=== PATIENT | female | born 1955 | race Caucasian/White ===

== ENCOUNTER → 2016-11-27 | Outpatient (CLI) | payer MEDICAID ==
[2016-11-27 13:59] LABS: HEMOGLOBIN 11.9 g/dL (12.0-15.5); HGB HCT DIFFERENCE 0.7; MEAN CORPUSCULAR HEMOGLOBIN 31.4 pg (27.0-33.4); MEAN CORPUSCULAR VOLUME 92 fl (80-97); RED BLOOD COUNT 3.79 10^6/uL (3.72-5.28); RED CELL DISTRIBUTION WIDTH 13.7 % (11.5-14.0); WHITE BLOOD COUNT 4.6 10^3/uL (4.0-10.5)
[2016-11-27 14:25] LABS: ANION GAP 11 (5-19); BLOOD UREA NITROGEN 17 mg/dL (7-20); CALCIUM 9.2 mg/dL (8.4-10.2); CARBON DIOXIDE 23 mmol/L (22-30); CHLORIDE 106 mmol/L (98-107); CREATININE RESULT 0.96 mg/dL (0.52-1.25); GLUCOSE 97 mg/dL (75-110); POTASSIUM 4.7 mmol/L (3.6-5.0); SODIUM 140.3 mmol/L (137-145)
[2016-11-27 15:32] LABS: APPEARANCE,URINE CLOUDY; BILIRUBIN,URINE NEGATIVE (NEGATIVE); GLUCOSE, URINE NEGATIVE (NEGATIVE); KETONES,URINE NEGATIVE (NEGATIVE); LEUKOCYTE ESTERASE,URINE LARGE (NEGATIVE); NITRITE,URINE POSITIVE (NEGATIVE); PROTEIN,URINE 30 mg/dL (NEGATIVE); URINE SPECIFIC GRAVITY 1.009; UROBILINOGEN,URINE NEGATIVE mg/dL (<2.0)
== END ==
LOC: OD 13:13
PROVIDERS: ATTEND Internal Medicine Nephrology
DX: R31.9 Hematuria, unspecified (principal); R80.9 Proteinuria, unspecified; N00.8 Acute nephritic syndrome with other morphologic changes; I10 Essential (primary) hypertension
CPT/HCPCS: 36415; 80048; 81001; 85027

== ENCOUNTER → 2017-06-29 | Outpatient (CLI) | payer MEDICAID ==
--- NOTE | 2017-06-29 18:27 | WOMENS IMAGING REPORT ---
EXAM DESCRIPTION: BILAT DIAGNOSTIC MAMMO W/CAD; U/S BREAST UNILAT LIMITED COMPLETED DATE/TIME: 06/29/2017 9:24 am; 06/29/2017 10:03 am REASON FOR STUDY: MASTODYNIA; N64.4; LEFT BREAST LUMP N63.0 N64.4 MASTODYNIA COMPARISON: 2014 TECHNIQUE: Standard craniocaudal and mediolateral oblique views of each breast recorded using digita l acquisition. Additional left breast 90 mediolateral view. Additional left breast ultrasound LIMITATIONS: None. FINDINGS: RIGHT BREAST MASSES: No suspicious masses. CALCIFICATIONS: No new or suspicious calcifications. ARCHITECTURAL DISTORTION: None. DEVELOPING DENSITY: None. ASYMMETRY: None noted. OTHER: No other significant findings. LEFT BREAST MASSES: No suspicious masses. CALCIFICATIONS: No new or suspicious calcifications. ARCHITECTURAL DISTORTION: None. DEVELOPING DENSITY: None. ASYMMETRY: None noted. OTHER: No other significant finding. Read with the assistance of CAD: .[facility] - R2 Cenova Version 1.3 .[facility] Imaging - R2 Cenova Version 1.3 .[facility] Imaging - R2 Cenova Version 2.4 .[facility] - R2 Cenova Version 2.4 .[facility] - R2 Mopper Version 9.2 Left breast ultrasound: Ultrasound of the left breast was performed. In the 3 o'clock position, a 6 mm breast parenchymal cy [address] is present. This correlates with the area of pain. In the 10 to 11 o'clock position, a 6 mm cyst is present. This correlates with an area of pain. At the 7 to 8 o'clock position, a hypoechoic well-circumscribed sonographic nodule is present with go od acoustic through transmission likely a tiny fibroadenoma, 6 mm in size IMPRESSION: No mammographic evidence for malignancy right breast. No mammographic or sonographic evidence for malignancy left breast BREAST DENSITY: b. There are scattered areas of fibroglandular density. BIRAD: 2 Benign findings. RECOMMENDATION: RECOMMENDED FOLLOW UP: Please continue yearly bilateral screening mammography. Cons ider bilateral tomosynthesis in June 2018 SPECIFIC INTERVENTION/IMAGING/CONSULTATION RECOMMENDED:No additional intervention/ imaging/consultati on needed at this time. COMMUNICATION:The negative/benign results were communicated to the patient. COMMENT: The patient has been notified of the results by letter per MQSA requirements. Additional no tification policies are in place for contacting patient with suspicious or incomplete findings. Quality ID #[id number]: The [employer] recommends an annual screening mammogram for women aged 40 years or over. This facility utilizes a reminder system to ensure that all patients receive reminder letters, and/or direct phone calls for appointments. This includes reminders for routine scr eening mammograms, diagnostic mammograms, or other Breast Imaging Interventions when appropriate. Th is patient will be placed in the appropriate reminder system. The [employer] (ACR) has developed recommendations for screening MRI of the breast s in certain patient populations, to be used in conjunction with mammography. Breast MRI surveillanc e may be appropriate for women with more than 20% lifetime risk of developing breast cancer as deter mined by genetic testing, significant family history of the disease, or history of mantle radiation f or Hodgkins Disease. ACR Practice Guidelines 2008. TECHNICAL DOCUMENTATION: FINDING NUMBER: (1) ASSESSMENT: (1) JOB ID: [id number] [employer]- All Rights Reserved
--- NOTE | 2017-06-29 18:27 | WOMENS IMAGING REPORT ---
EXAM DESCRIPTION: BILAT DIAGNOSTIC MAMMO W/CAD; U/S BREAST UNILAT LIMITED COMPLETED DATE/TIME: 06/29/2017 9:24 am; 06/29/2017 10:03 am REASON FOR STUDY: MASTODYNIA; N64.4; LEFT BREAST LUMP N63.0 N64.4 MASTODYNIA COMPARISON: 2014 TECHNIQUE: Standard craniocaudal and mediolateral oblique views of each breast recorded using digita l acquisition. Additional left breast 90 mediolateral view. Additional left breast ultrasound LIMITATIONS: None. FINDINGS: RIGHT BREAST MASSES: No suspicious masses. CALCIFICATIONS: No new or suspicious calcifications. ARCHITECTURAL DISTORTION: None. DEVELOPING DENSITY: None. ASYMMETRY: None noted. OTHER: No other significant findings. LEFT BREAST MASSES: No suspicious masses. CALCIFICATIONS: No new or suspicious calcifications. ARCHITECTURAL DISTORTION: None. DEVELOPING DENSITY: None. ASYMMETRY: None noted. OTHER: No other significant finding. Read with the assistance of CAD: .[facility] - R2 Cenova Version 1.3 .[facility] Imaging - R2 Cenova Version 1.3 .[facility] Imaging - R2 Cenova Version 2.4 .[facility] - R2 Cenova Version 2.4 .[facility] - R2 Publicist Version 9.2 Left breast ultrasound: Ultrasound of the left breast was performed. In the 3 o'clock position, a 6 mm breast parenchymal cy st is present. This correlates with the area of pain. In the 10 to 11 o'clock position, a 6 mm cyst is present. This correlates with an area of pain. At the 7 to 8 o'clock position, a hypoechoic well-circumscribed sonographic nodule is present with go od acoustic through transmission likely a tiny fibroadenoma, 6 mm in size IMPRESSION: No mammographic evidence for malignancy right breast. No mammographic or sonographic evidence for malignancy left breast BREAST DENSITY: b. There are scattered areas of fibroglandular density. BIRAD: 2 Benign findings. RECOMMENDATION: RECOMMENDED FOLLOW UP: Please continue yearly bilateral screening mammography. Cons ider bilateral tomosynthesis in June 2018 SPECIFIC INTERVENTION/IMAGING/CONSULTATION RECOMMENDED:No additional intervention/ imaging/consultati on needed at this time. COMMUNICATION:The negative/benign results were communicated to the patient. COMMENT: The patient has been notified of the results by letter per MQSA requirements. Additional no tification policies are in place for contacting patient with suspicious or incomplete findings. Quality ID #[id number]: The [employer] recommends an annual screening mammogram for women aged 40 years or over. This facility utilizes a reminder system to ensure that all patients receive reminder letters, and/or direct phone calls for appointments. This includes reminders for routine scr eening mammograms, diagnostic mammograms, or other Breast Imaging Interventions when appropriate. Th is patient will be placed in the appropriate reminder system. The [employer] (ACR) has developed recommendations for screening MRI of the breast s in certain patient populations, to be used in conjunction with mammography. Breast MRI surveillanc e may be appropriate for women with more than 20% lifetime risk of developing breast cancer as deter mined by genetic testing, significant family history of the disease, or history of mantle radiation f or Hodgkins Disease. ACR Practice Guidelines 2008. TECHNICAL DOCUMENTATION: FINDING NUMBER: (1) ASSESSMENT: (1) JOB ID: [id number] [employer]- All Rights Reserved
== END ==
LOC: WI 09:27
PROVIDERS: ATTEND Physician Assistant
DX: N64.4 Mastodynia (principal)
CPT/HCPCS: 76642; G0204; 77066

== ENCOUNTER → 2017-10-19 | Outpatient (CLI) | payer MEDICAID ==
[2017-10-19 09:14] LABS: ABSOLUTE EOSINOPHILS # (AUTO) 0.2 10^3/uL (0.0-0.6); ABSOLUTE LYMPHOCYTES (AUTO) 1.5 10^3/uL (0.5-4.7); ABSOLUTE MONOCYTES (AUTO) 0.3 10^3/uL (0.1-1.4); ABSOLUTE NEUT (AUTO) 3.1 10^3/uL (1.7-8.2); BASOPHILS % (AUTO) 0.3 % (0-2); EOSINOPHILS % (AUTO) 3.4 % (0-6); HEMATOCRIT 37.6 % (36.0-47.0); HEMOGLOBIN 13.2 g/dL (12.0-15.5); LYMPHOCYTES % (AUTO) 29.7 % (13-45); MEAN CORPUSCULAR HEMOGLOBIN 32.5 pg (27.0-33.4); MEAN CORPUSCULAR HGB CONC 35.2 g/dL (32.0-36.0); MEAN CORPUSCULAR VOLUME 92 fl (80-97); MONOCYTES % (AUTO) 5.9 % (3-13); PLATELET COUNT 150 10^3/uL (150-450); RED BLOOD COUNT 4.08 10^6/uL (3.72-5.28); RED CELL DISTRIBUTION WIDTH 13.3 % (11.5-14.0); SEGMENTED NEUTROPHILS % (AUTO) 60.7 % (42-78); TOTAL CELLS COUNTED % (AUTO) 100 %
[2017-10-19 09:19] LABS: APPEARANCE,URINE SLIGHTLY-CLOUDY; BILIRUBIN,URINE NEGATIVE (NEGATIVE); COLOR,URINE YELLOW; GLUCOSE, URINE NEGATIVE (NEGATIVE); KETONES,URINE NEGATIVE (NEGATIVE); LEUKOCYTE ESTERASE,URINE MODERATE (NEGATIVE); NITRITE,URINE POSITIVE (NEGATIVE); PROTEIN,URINE NEGATIVE (NEGATIVE); URINE SPECIFIC GRAVITY 1.008; UROBILINOGEN,URINE NEGATIVE mg/dL (<2.0)
[2017-10-19 09:37] LABS: ANION GAP 14 (5-19); BLOOD UREA NITROGEN 21 mg/dL (7-20); CALCIUM 10.1 mg/dL (8.4-10.2); CARBON DIOXIDE 24 mmol/L (22-30); CHLORIDE 103 mmol/L (98-107); GLUCOSE 155 mg/dL (75-110); POTASSIUM 4.1 mmol/L (3.6-5.0); SODIUM 140.8 mmol/L (137-145)
== END ==
LOC: OD 08:28
PROVIDERS: ATTEND Internal Medicine Nephrology
DX: R80.9 Proteinuria, unspecified (principal); I10 Essential (primary) hypertension; M32.9 Systemic lupus erythematosus, unspecified
CPT/HCPCS: 36415; 80048; 81001; 85025

== ENCOUNTER → 2018-01-24 | Outpatient (CLI) | payer MEDICAID ==
[2018-01-24 11:23] LABS: HEMATOCRIT 38.3 % (36.0-47.0); HEMOGLOBIN 13.2 g/dL (12.0-15.5); MEAN CORPUSCULAR HEMOGLOBIN 32.4 pg (27.0-33.4); MEAN CORPUSCULAR HGB CONC 34.5 g/dL (32.0-36.0); MEAN CORPUSCULAR VOLUME 94 fl (80-97); PLATELET COUNT 151 10^3/uL (150-450); RED BLOOD COUNT 4.07 10^6/uL (3.72-5.28); WHITE BLOOD COUNT 3.2 10^3/uL (4.0-10.5)
[2018-01-24 11:40] LABS: ALANINE AMINOTRANSFERASE 26 U/L (9-52); ALBUMIN 4.2 g/dL (3.5-5.0); ALKALINE PHOSPHATASE 44 U/L (38-126); ANION GAP 10 (5-19); ASPARTATE AMINO TRANSFERASE 23 U/L (14-36); BILIRUBIN,DIRECT 0.3 mg/dL (0.0-0.4); BILIRUBIN,TOTAL 0.5 mg/dL (0.2-1.3); BLOOD UREA NITROGEN 15 mg/dL (7-20); CALCIUM 9.6 mg/dL (8.4-10.2); CARBON DIOXIDE 28 mmol/L (22-30); CHLORIDE 105 mmol/L (98-107); CREATINE KINASE 58 U/L (30-135); GLUCOSE 120 mg/dL (75-110); POTASSIUM 4.4 mmol/L (3.6-5.0); SODIUM 142.5 mmol/L (137-145)
[2018-01-24 12:31] LABS: APPEARANCE,URINE CLEAR; BILIRUBIN,URINE NEGATIVE (NEGATIVE); COLOR,URINE YELLOW; GLUCOSE, URINE NEGATIVE (NEGATIVE); KETONES,URINE NEGATIVE (NEGATIVE); LEUKOCYTE ESTERASE,URINE TRACE (NEGATIVE); NITRITE,URINE NEGATIVE (NEGATIVE); PROTEIN,URINE NEGATIVE (NEGATIVE); URINE SPECIFIC GRAVITY 1.011; UROBILINOGEN,URINE NEGATIVE mg/dL (<2.0)
== END ==
LOC: OD 10:30
PROVIDERS: ATTEND Internal Medicine Nephrology
DX: R80.9 Proteinuria, unspecified (principal); R31.9 Hematuria, unspecified
CPT/HCPCS: 36415; 80053; 81001; 82550; 85027

== ENCOUNTER → 2018-03-15 | Outpatient (CLI) | payer MEDICAID ==
--- NOTE | 2018-03-15 11:47 | RADIOLOGY REPORT (SQ) ---
EXAM DESCRIPTION: U/S ABDOMEN COMPLETE W/DOPPLER COMPLETED DATE/TIME: 03/15/2018 11:20 am REASON FOR STUDY: ABDOMINAL DISTENSION (GASEOUS) R14.0 ABDOMINAL DISTENSION (GASEOUS) COMPARISON: CT abdomen pelvis 02/14/2016, 10/30/2015 TECHNIQUE: Dynamic and static grayscale images acquired of the abdomen and recorded on PACS. Additio nal selected color Doppler and spectral images recorded. LIMITATIONS: Midline bowel gas FINDINGS: PANCREAS: Midline pancreas unremarkable LIVER: No masses. Echotexture normal. LIVER VASCULATURE: Normal directional flow of the main portal vein and hepatic veins. GALLBLADDER: No stones. Normal wall thickness. No pericholecystic fluid. ULTRASOUND-DETECTED VALDEZ'S SIGN: Negative. INTRAHEPATIC DUCTS AND COMMON DUCT: CBD and intrahepatic ducts normal caliber. No filling defects. INFERIOR VENA CAVA: Normal flow. AORTA: No aneurysm. RIGHT KIDNEY: Normal size. Normal echogenicity. No solid or suspicious masses. No hydronephros is. No calcifications. LEFT KIDNEY: Normal size. Normal echogenicity. No solid or suspicious masses. No hydronephrosi s. No calcifications. SPLEEN: Normal size. No solid masses. PERITONEAL AND PLEURAL SPACES: No ascites or effusions. OTHER: No other significant finding. IMPRESSION: NORMAL ABDOMINAL ULTRASOUND. TECHNICAL DOCUMENTATION: JOB ID: [id number] [employer]- All Rights Reserved Reading location - IP/workstation name: [email or web address]
== END ==
LOC: RAD 10:29
PROVIDERS: ATTEND Physician Assistant Medical
DX: R14.0 Abdominal distension (gaseous) (principal); R10.11 Right upper quadrant pain; D69.6 Thrombocytopenia, unspecified
CPT/HCPCS: 76700; 93976

== ENCOUNTER → 2018-07-27 | Outpatient (CLI) | payer MEDICAID ==
[2018-07-27 14:10] LABS: HEMATOCRIT 39.8 % (36.0-47.0); HEMOGLOBIN 14.2 g/dL (12.0-15.5); MEAN CORPUSCULAR HEMOGLOBIN 32.4 pg (27.0-33.4); MEAN CORPUSCULAR HGB CONC 35.5 g/dL (32.0-36.0); MEAN CORPUSCULAR VOLUME 91 fl (80-97); PLATELET COUNT 201 10^3/uL (150-450); RED BLOOD COUNT 4.37 10^6/uL (3.72-5.28); RED CELL DISTRIBUTION WIDTH 13.1 % (11.5-14.0); WHITE BLOOD COUNT 6.1 10^3/uL (4.0-10.5)
[2018-07-27 14:18] LABS: APPEARANCE,URINE CLOUDY; BILIRUBIN,URINE NEGATIVE (NEGATIVE); COLOR,URINE YELLOW; GLUCOSE, URINE NEGATIVE (NEGATIVE); KETONES,URINE NEGATIVE (NEGATIVE); LEUKOCYTE ESTERASE,URINE LARGE (NEGATIVE); NITRITE,URINE NEGATIVE (NEGATIVE); PROTEIN,URINE 30 mg/dL (NEGATIVE); URINE SPECIFIC GRAVITY 1.005; UROBILINOGEN,URINE NEGATIVE mg/dL (<2.0)
[2018-07-27 14:34] LABS: ANION GAP 10 (5-19); BLOOD UREA NITROGEN 11 mg/dL (7-20); CALCIUM 9.8 mg/dL (8.4-10.2); CARBON DIOXIDE 30 mmol/L (22-30); CHLORIDE 100 mmol/L (98-107); GLUCOSE 107 mg/dL (75-110); POTASSIUM 5.7 mmol/L (3.6-5.0); SODIUM 140.4 mmol/L (137-145)
== END ==
LOC: OD 13:20
PROVIDERS: ATTEND Internal Medicine Nephrology
DX: R80.9 Proteinuria, unspecified (principal); M32.10 Systemic lupus erythematosus, organ or system involvement unspecified; R31.9 Hematuria, unspecified
CPT/HCPCS: 36415; 80048; 81001; 85027

== ENCOUNTER 2018-07-29 14:05 | Emergency (ER) | payer MEDICAID ==
[2018-07-29] MEDS ORDERED: ASPIRIN 81 MG TABLET, CHEWABLE PO ONE (15:40)
--- NOTE | 2018-07-29 15:42 | ER Document Report ---
ED Medical Screen (RME) - General Chief Complaint: Shortness Of Breath Stated Complaint: SHORTNESS OF BREATH,BACK PAIN Time Seen by Provider: 07/29/18 15:32 Mode of Arrival: Ambulatory Information source: Patient Notes: Patient is a 63-year-old female who presents with multiple complaints today. Patient reports she had labs drawn yesterday that were ordered by her ring striker in [place]. She states that they called her told her that her potassium was 5.7, they instructed her to take Kayexalate and return for new lab draw today. Patient states she had her labs redrawn today and potassium was down to 4.5. Patient however reports she has been having increasing shortness of breath today, chest pain that radiates through to her back and palpitations. Patient also reports generalized abdominal pain. Patient states she has a history of recurrent UTIs she is not sure if that is what is causing her abdominal pain however she states the chest pain is something new for her. Exam: Patient alert, oriented and in no acute distress. Heart sounds S1-S2 present. Lung sounds clear to auscultation bilaterally. I have greeted and performed a rapid initial assessment of this patient. A comprehensive ED assessment and evaluation of the patient, analysis of test results and completion of the medical decision making process will be conducted by additional ED providers. Dictation of this chart was performed using voice recognition software; therefore, there may be some unintended grammatical errors. TRAVEL OUTSIDE OF THE [place] IN LAST 30 DAYS: No - Related Data Allergies/Adverse Reactions: aminophylline Allergy (Verified 03/13/16 18:26) Past Medical History - Past Medical History Cardiac Medical History: Denies: Hx Coronary Artery Disease, Hx Heart Attack, Hx Hypertension Pulmonary Medical History: Denies: Hx Asthma, Hx Bronchitis, Hx COPD, Hx Pneumonia Neurological Medical History: Denies: Hx Cerebrovascular Accident, Hx Seizures Renal/ Medical History: Reports: Hx Renal Insufficiency GI Medical History: Reports: Hx Gastroesophageal Reflux Disease, Hx Hiatal Hernia Musculoskeltal Medical History: Reports Hx Arthritis, Reports Hx Fibromyalgia Psychiatric Medical History: Reports: Hx Anxiety, Hx Depression Past Surgical History: Reports: Hx Cardiac Surgery - Aortic valve repair 2208, Hx Orthopedic Surgery - Left elbow, Hx Vascular Surgery - ANEURYSMS IN NECK REPAIRED. Denies: Hx Hysterectomy - Immunizations Hx Diphtheria, Pertussis, Tetanus Vaccination: Yes Physical Exam - Vital signs Vitals: Temp Pulse Resp BP Pulse Ox 98.0 F 94 16 132/78 H 96 07/29/18 14:45 07/29/18 14:45 07/29/18 14:45 07/29/18 14:45 07/29/18 14:45 Course - Vital Signs Vital signs: Temp Pulse Resp BP Pulse Ox 98.0 F 94 16 132/78 H 96 07/29/18 14:45 07/29/18 14:45 07/29/18 14:45 07/29/18 14:45 07/29/18 14:45 Doctor's Discharge - Discharge Referrals: Rachelle FARR MD [Primary Care Provider] - Follow up as needed
--- NOTE | 2018-07-29 16:03 | RADIOLOGY REPORT (SQ) ---
EXAM DESCRIPTION: CHEST SINGLE VIEW COMPLETED DATE/TIME: 07/29/2018 3:51 pm REASON FOR STUDY: chest pain COMPARISON: 03/13/2016 EXAM PARAMETERS: NUMBER OF VIEWS: One view. TECHNIQUE: Single frontal radiographic view of the chest acquired. RADIATION DOSE: NA LIMITATIONS: None. FINDINGS: LUNGS AND PLEURA: No opacities, masses or pneumothorax. No pleural effusion. MEDIASTINUM AND HILAR STRUCTURES: No masses. Contour normal. HEART AND VASCULAR STRUCTURES: Heart normal in size. Normal vasculature. BONES: No acute findings. HARDWARE: Sternotomy wires. Heart valve. OTHER: No other significant finding. IMPRESSION: NO ACUTE RADIOGRAPHIC FINDING IN THE CHEST. TECHNICAL DOCUMENTATION: JOB ID: [id number] [employer]- All Rights Reserved Reading location - IP/workstation name: [email or web address]
[2018-07-29 16:50] LABS: ABSOLUTE EOSINOPHILS # (AUTO) 0.1 10^3/uL (0.0-0.6); ABSOLUTE LYMPHOCYTES (AUTO) 1.4 10^3/uL (0.5-4.7); ABSOLUTE MONOCYTES (AUTO) 0.4 10^3/uL (0.1-1.4); ABSOLUTE NEUT (AUTO) 4.1 10^3/uL (1.7-8.2); BASOPHILS % (AUTO) 0.3 % (0-2); EOSINOPHILS % (AUTO) 1.1 % (0-6); HEMATOCRIT 36.7 % (36.0-47.0); HEMOGLOBIN 12.9 g/dL (12.0-15.5); LYMPHOCYTES % (AUTO) 23.6 % (13-45); MEAN CORPUSCULAR HEMOGLOBIN 32.4 pg (27.0-33.4); MEAN CORPUSCULAR HGB CONC 35.1 g/dL (32.0-36.0); MEAN CORPUSCULAR VOLUME 92 fl (80-97); MONOCYTES % (AUTO) 6.3 % (3-13); PLATELET COUNT 197 10^3/uL (150-450); RED BLOOD COUNT 3.98 10^6/uL (3.72-5.28); RED CELL DISTRIBUTION WIDTH 13.1 % (11.5-14.0); SEGMENTED NEUTROPHILS % (AUTO) 68.7 % (42-78); TOTAL CELLS COUNTED % (AUTO) 100 %
[2018-07-29 16:54] LABS: APPEARANCE,URINE TURBID; BILIRUBIN,URINE NEGATIVE (NEGATIVE); COLOR,URINE YELLOW; GLUCOSE, URINE NEGATIVE (NEGATIVE); KETONES,URINE NEGATIVE (NEGATIVE); LEUKOCYTE ESTERASE,URINE LARGE (NEGATIVE); NITRITE,URINE NEGATIVE (NEGATIVE); PROTEIN,URINE 100 mg/dL (NEGATIVE); UROBILINOGEN,URINE NEGATIVE mg/dL (<2.0)
[2018-07-29 17:09] LABS: ALANINE AMINOTRANSFERASE 29 U/L (9-52); ALBUMIN 4.3 g/dL (3.5-5.0); ALKALINE PHOSPHATASE 69 U/L (38-126); ANION GAP 13 (5-19); ASPARTATE AMINO TRANSFERASE 32 U/L (14-36); BILIRUBIN,DIRECT 0.2 mg/dL (0.0-0.4); BILIRUBIN,TOTAL 0.5 mg/dL (0.2-1.3); BLOOD UREA NITROGEN 16 mg/dL (7-20); CALCIUM 9.5 mg/dL (8.4-10.2); CARBON DIOXIDE 26 mmol/L (22-30); CHLORIDE 102 mmol/L (98-107); CREATINE KINASE 69 U/L (30-135); GLUCOSE 92 mg/dL (75-110); POTASSIUM 4.2 mmol/L (3.6-5.0); SODIUM 140.8 mmol/L (137-145); TOTAL PROTEIN 7.3 g/dL (6.3-8.2)
[2018-07-29 17:19] LABS: CREATINE KINASE MB 0.49 ng/mL (<4.55)
[2018-07-29 17:22] LABS: TROPONIN I < 0.012 ng/mL
[2018-07-29] MEDS ORDERED: CEFTRIAXONE 1 GM/D5W RTU 1 GM/50 ML RTUPB IV ONE (17:35)
--- NOTE | 2018-07-29 18:01 | RADIOLOGY REPORT (SQ) ---
EXAM DESCRIPTION: CT LTD RENAL STONE PROTOCOL ON COMPLETED DATE/TIME: 07/29/2018 5:45 pm REASON FOR STUDY: right flank COMPARISON: None. TECHNIQUE: CT scan of the abdomen and pelvis performed without intravenous or oral contrast. Images reviewed with lung, soft tissue, and bone windows. Reconstructed coronal and sagittal MPR images revi ewed. All images stored on PACS. All CT scanners at this facility use dose modulation, iterative reconstruction, and/or weight based d osing when appropriate to reduce radiation dose to as low as reasonably achievable (ALARA). [facility]: Dose Right [facility]: CareDose [facility]: Dose Right [facility]: Teradose 4D [facility]: Smart [employer] RADIATION DOSE: CT Rad equipment meets quality standard of care and radiation dose reduction techniq ues were employed. CTDIvol: 14.1 mGy. DLP: 796 mGy-cm.mGy. LIMITATIONS: None. FINDINGS: LOWER CHEST: No significant findings. No nodules or infiltrates. NON-CONTRASTED LIVER, SPLEEN, ADRENALS: Evaluation limited by lack of IV contrast. No identified sign ificant masses. PANCREAS: No masses. No peripancreatic inflammatory changes. GALLBLADDER: No identified stones by CT criteria. No inflammatory changes to suggest cholecystitis. RIGHT KIDNEY AND URETER: No suspicious masses. Assessment limited by lack of IV contrast. No signif icant calcifications. No hydronephrosis or hydroureter. LEFT KIDNEY AND URETER: No suspicious masses. Assessment limited by lack of IV contrast. No signifi cant calcifications. No hydronephrosis or hydroureter. AORTA AND RETROPERITONEUM: No aneurysm. No retroperitoneal masses or adenopathy. BOWEL AND PERITONEAL CAVITY: Occasional sigmoid diverticula. Question mild inflammatory changes in t he fat adjacent to the sigmoid on image 67 series 3. APPENDIX: Not identified. PELVIS, BLADDER, AND ABDOMINAL WALL:There is slight thickening of the wall of the urinary bladder. T here is extensive stranding in the fat around the bladder. BONES: No significant findings. OTHER: No other significant finding. IMPRESSION: 1. There are inflammatory changes associated with the urinary bladder. There is mild t hickening of bladder wall. Concerning for cystitis. 2. Mild diverticulosis coli. Question minimal inflammation adjacent to the sigmoid. COMMENT: Quality ID # [id number]: Final reports with documentation of one or more dose reduction techniques (e.g., Automated exposure control, adjustment of the mA and/or kV according to patient size, use of iterative reconstruction technique) TECHNICAL DOCUMENTATION: JOB ID: [id number] [employer] [facility]- All Rights Reserved Reading location - IP/workstation name: [email or web address]
[2018-07-29] MEDS ORDERED: AMOXICILLIN TR/POT CLAVULANATE 500-125 MG TAB PO ONE (18:06)
--- NOTE | 2018-07-29 18:19 | ER Document Report ---
ED General - General Chief Complaint: Shortness Of Breath Stated Complaint: SHORTNESS OF BREATH,BACK PAIN Time Seen by Provider: 07/29/18 15:32 Mode of Arrival: Ambulatory TRAVEL OUTSIDE OF THE [place] IN LAST 30 DAYS: No - HPI Patient complains to provider of: Multiple complaints Notes: Patient coming in with multiple complaints denies complaints shortness of breath chest tightness lower abdominal pain urinary tract symptoms. Patient states he has a history of lupus and fibromyalgia. Patient states abdominal pain left lower quadrant ongoing for many years however exacerbated over the last week. Patient also states generalized weakness. Patient denies any fever chills nausea vomiting diarrhea. Patient states that her PCP is Dr. Malcolm states multiple evaluations have been performed and unable to give a clear answer why she has chronic left lower quadrant abdominal pain. Patient states negative colonoscopy never CAT scans patient also states negative cystoscopies however does have history of recurrent UTIs. Patient states she has been told by her PCP that Keflex would not work for her anymore. Otherwise patient is resting comfortably no signs of toxemia or sepsis upon my evaluation. - Related Data Allergies/Adverse Reactions: aminophylline Allergy (Verified 03/13/16 18:26) Past Medical History - General Information source: Patient - Social History Smoking Status: Current Some Day Smoker Family History: CAD Patient has suicidal ideation: No Patient has homicidal ideation: No - Past Medical History Cardiac Medical History: Denies: Hx Coronary Artery Disease, Hx Heart Attack, Hx Hypertension Pulmonary Medical History: Denies: Hx Asthma, Hx Bronchitis, Hx COPD, Hx Pneumonia Neurological Medical History: Denies: Hx Cerebrovascular Accident, Hx Seizures Renal/ Medical History: Reports: Hx Renal Insufficiency. Denies: Hx Peritoneal Dialysis GI Medical History: Reports: Hx Gastroesophageal Reflux Disease, Hx Hiatal Hernia Musculoskeletal Medical History: Reports Hx Arthritis, Reports Hx Fibromyalgia Psychiatric Medical History: Reports: Hx Anxiety, Hx Depression Past Surgical History: Reports: Hx Cardiac Surgery - Aortic valve repair 2208, Hx Orthopedic Surgery - Left elbow, Hx Vascular Surgery - ANEURYSMS IN NECK REPAIRED. Denies: Hx Hysterectomy - Immunizations Hx Diphtheria, Pertussis, Tetanus Vaccination: Yes Review of Systems - Review of Systems Constitutional: No symptoms reported EENT: No symptoms reported Cardiovascular: No symptoms reported Respiratory: Short of breath Gastrointestinal: Abdominal pain Genitourinary: Other - Patient states I have a UTI Female Genitourinary: No symptoms reported Musculoskeletal: No symptoms reported Skin: No symptoms reported Hematologic/Lymphatic: No symptoms reported Neurological/Psychological: No symptoms reported -: Yes All other systems reviewed and negative Physical Exam - Vital signs Vitals: Temp Pulse Resp BP Pulse Ox 98.0 F 94 16 132/78 H 96 07/29/18 14:45 07/29/18 14:45 07/29/18 14:45 07/29/18 14:45 07/29/18 14:45 Interpretation: Normal - General General appearance: Appears well, Alert - HEENT Head: Normocephalic, Atraumatic Eyes: Normal Pupils: PERRL - Respiratory Respiratory status: No respiratory distress Chest status: Nontender Breath sounds: Normal Chest palpation: Normal - Cardiovascular Rhythm: Regular Heart sounds: Normal auscultation Murmur: No Systolic murmur grade 1-6: 3 - Abdominal Inspection: Normal, Obese Distension: No distension Bowel sounds: Normal Tenderness: Nontender Organomegaly: No organomegaly - Back Back: Normal, Nontender - Extremities General upper extremity: Normal inspection, Nontender, Normal color, Normal ROM , Normal temperature General lower extremity: Normal inspection, Nontender, Normal color, Normal ROM , Normal temperature, Normal weight bearing. No: Nori's sign - Neurological Neuro grossly intact: Yes Cognition: Normal Orientation: AAOx4 [place] Coma Scale Eye Opening: Spontaneous Agustín Coma Scale Verbal: Oriented Agustín Coma Scale Motor: Obeys Commands [place] Coma Scale Total: 15 Speech: Normal Motor strength normal: LUE, RUE, LLE, RLE Sensory: Normal - Psychological Associated symptoms: Normal affect, Normal mood - Skin Skin Temperature: Warm Skin Moisture: Dry Skin Color: Normal Course - Re-evaluation Re-evalutation: 07/29/18 19:21 I did review the patient's previous visit showing multiple CAT scans initially explained to the patient I would hesitate to perform any more CTs on the patient however upon reviewing the patient's laboratory studies patient does have blood in her urine and signs of a urinary tract infection therefore a CT scan was performed looking for renal stone. This was negative. Explained to the patient that there is no renal stones however slight inflammation around the bladder consistent with cystitis which is seen on multiple CAT scans in the past also some slight stranding around the sigmoid colon more likely coming from the bladder recommended Rocephin at this time followed by a course of Augmentin to cover the inflammatory changes around the sigmoid colon and urinary tract infection. Otherwise troponin EKG chest x-ray laboratory studies not show any critical pathology patient will be discharged home follow-up PCP. The patient presents with abdominal pain without signs of peritonitis or other life-threatening or serious etiology. The patient appears stable for discharge and has been instructed to return immediately if the symptoms worsen in any way , or in 8-12hr if not improved for re-evaluation. The patient has been instructed to return if the symptoms worsen or change in any way. The patient has atypical chest pain as the patient's chest pain is not suggestive of pulmonary embolus, cardiac ischemia, aortic dissection, or other serious etiology. Given the extremely low risk of these diagnoses further testing and evaluation for these possibilities does not appear to be indicated at this time. The patient has been instructed to return if the symptoms worsen or change in any way. - Vital Signs Vital signs: Temp Pulse Resp BP Pulse Ox 98.0 F 91 18 154/85 H 100 07/29/18 19:19 07/29/18 19:19 07/29/18 19:19 07/29/18 19:19 07/29/18 19:19 - Laboratory Result Diagrams: 07/29/18 16:22 07/29/18 16:22 Laboratory results interpreted by me: 07/29/18 07/29/18 16:22 16:22 Est GFR ( Amer) 53 L Est GFR (Non-Af Amer) 44 L Urine Protein 100 H Urine Blood MODERATE H Ur Leukocyte Esterase LARGE H Discharge - Discharge Clinical Impression: Mild inflammation around the sigmoid UTI (urinary tract infection) Qualifiers: Urinary tract infection type: acute cystitis Hematuria presence: with hematuria Qualified Code(s): N30.01 - Acute cystitis with hematuria Instructions: Abdominal Pain ([facility]), Augmentin ([facility]), Urinary Tract Infection ( [facility]) Additional Instructions: Your laboratory studies today did not show any signs of significant pathology. Troponin is negative chest x-ray is negative EKG looks normal. I would highly recommend she follow-up with her primary care physician for these complaints. Your urinalysis does show signs of infection. We will treat your urinary tract infection with a dose of Rocephin here in the ER along with dose of Augmentin. Your CAT scan did not show any signs of kidney stones today however there is some slight inflammation around her bladder and also just above your sigmoid colon. More likely the inflammation is due to her chronic infections. The Augmentin should take care of any infectious cause from your bladder or from the sigmoid colon I would recommend eating plenty of yogurt as that any antibiotic can cause diarrhea Take Bentyl for pain recommend Tylenol Motrin for pain control as well follow- up with your primary care physician in the next 3-5 days. We recommend having her INR checked in the next 48-72 hours Prescriptions: Amox Tr/Potassium Clavulanate [Augmentin 875-125 Tablet] 1 tab PO BID 10 Days tablet Dicyclomine HCl [Bentyl 20 mg Tablet] 20 mg PO QID #30 tablet Referrals: Rachelle FARR MD [ACTIVE STAFF] - Follow up as needed
[2018-07-29 19:20] VITALS: BP 154/85
--- NOTE | 2018-07-30 00:16 | EKG REPORT ---
SEVERITY:- NORMAL ECG - SINUS RHYTHM NONSPECIFIC ST-T CHANGES : Confirmed by: Lindsey Kennedy 30-Jul-2018 00:15:23
== END 2018-07-29 19:20 | disposition home or self-care (01) ==
LOC: ER 14:05
DX: N30.01 Acute cystitis with hematuria (principal); R10.32 Left lower quadrant pain; R53.1 Weakness; R06.02 Shortness of breath; F17.200 Nicotine dependence, unspecified, uncomplicated; Z88.8 Allergy status to other drugs, medicaments and biological substances
CPT/HCPCS: 93005; 99285; 96365; 36415; 82553; 82550; 85025; 80053; 81001; 84484; 71045; 76380; 93010; J3490; J0696

== ENCOUNTER → 2018-07-29 | Outpatient (CLI) | payer MEDICAID | LOC: OD 08:36 | PROVIDERS: ATTEND Internal Medicine Nephrology | DX: N39.0 Urinary tract infection, site not specified (principal); E87.5 Hyperkalemia | CPT/HCPCS: 36415; 84132; 87086; 87088; 87186 ==

== ENCOUNTER → 2020-02-28 | Outpatient (CLI) | payer MEDICAID ==
[2020-02-28 15:25] LABS: ABSOLUTE EOSINOPHILS # (AUTO) 0.1 10^3/uL (0.0-0.6); ABSOLUTE LYMPHOCYTES (AUTO) 1.3 10^3/uL (0.5-4.7); ABSOLUTE MONOCYTES (AUTO) 0.2 10^3/uL (0.1-1.4); ABSOLUTE NEUT (AUTO) 2.6 10^3/uL (1.7-8.2); BASOPHILS % (AUTO) 0.3 % (0-2); EOSINOPHILS % (AUTO) 2.2 % (0-6); HEMATOCRIT 36.7 % (36.0-47.0); HEMOGLOBIN 13.1 g/dL (12.0-15.5); LYMPHOCYTES % (AUTO) 31.5 % (13-45); MEAN CORPUSCULAR HEMOGLOBIN 33.8 pg (27.0-33.4); MEAN CORPUSCULAR HGB CONC 35.6 g/dL (32.0-36.0); MEAN CORPUSCULAR VOLUME 95 fl (80-97); MONOCYTES % (AUTO) 5.4 % (3-13); PLATELET COUNT 144 10^3/uL (150-450); RED BLOOD COUNT 3.86 10^6/uL (3.72-5.28); RED CELL DISTRIBUTION WIDTH 13.5 % (11.5-14.0); SEGMENTED NEUTROPHILS % (AUTO) 60.6 % (42-78); TOTAL CELLS COUNTED % (AUTO) 100 %; WHITE BLOOD COUNT 4.3 10^3/uL (4.0-10.5)
[2020-02-28 15:47] LABS: ALBUMIN 4.7 g/dL (3.5-5.0); ALKALINE PHOSPHATASE 52 U/L (38-126); ANION GAP 7 (5-19); ASPARTATE AMINO TRANSFERASE 26 U/L (14-36); BILIRUBIN,TOTAL 0.9 mg/dL (0.2-1.3); BLOOD UREA NITROGEN 14 mg/dL (7-20); CALCIUM 9.5 mg/dL (8.4-10.2); CARBON DIOXIDE 27 mmol/L (22-30); CHLORIDE 104 mmol/L (98-107); CREATINE KINASE 82 U/L (30-135); GLUCOSE 93 mg/dL (75-110); POTASSIUM 3.9 mmol/L (3.6-5.0); TOTAL PROTEIN 7.5 g/dL (6.3-8.2)
[2020-02-28 15:55] LABS: CREATINE KINASE MB 0.83 ng/mL (<4.55)
[2020-02-28 16:01] LABS: TROPONIN I < 0.012 ng/mL
== END ==
LOC: OD 14:27
PROVIDERS: ATTEND Physician Assistant
DX: R07.9 Chest pain, unspecified (principal); I10 Essential (primary) hypertension
CPT/HCPCS: 36415; 80053; 82550; 82553; 84484; 85025

== ENCOUNTER → 2020-02-28 | Outpatient (CLI) | payer MEDICAID ==
--- NOTE | 2020-02-28 14:50 | RADIOLOGY REPORT (SQ) ---
EXAM DESCRIPTION: CT HEAD WITHOUT IMAGES COMPLETED DATE/TIME: 02/28/2020 2:18 pm REASON FOR STUDY: R51 HEADACHE, Z79.01 TENNIS BALL [employer] C[employer] (CURRENT) USE OF ANTICOAGULANTS R51 HEADACHE Z79.0 1 TENNIS BALL C[employer] C[employer]ER (CURRENT) USE OF ANTICOAGULANTS COMPARISON: CT brain 02/08/2015, 03/31/2013, 01/17/2011 TECHNIQUE: Axial images acquired through the brain without intravenous contrast. Images reviewed wi th bone, brain and subdural windows. Additional sagittal and coronal reconstructions were generated. Images stored on PACS. All CT scanners at this facility use dose modulation, iterative reconstruction, and/or weight based d osing when appropriate to reduce radiation dose to as low as reasonably achievable (ALARA). [facility]: Dose Right [facility]: CareDose [facility]: Dose Right [facility]: Teradose 4D [facility]: [employer] RADIATION DOSE: CT Rad equipment meets quality standard of care and radiation dose reduction techniq ues were employed. CTDIvol: 48.5 mGy. DLP: 855 mGy-cm. mGy. LIMITATIONS: None. FINDINGS: VENTRICLES: Normal size and contour. CEREBRUM: No CT evidence of acute large territory ischemic change, acute intracranial hemorrhage, mas s effect, or midline shift. There is spotty low attenuation in the bifrontal and biparietal white mat ter, stable compared to previous exams CEREBELLUM: No masses. No hemorrhage. No alteration of density. No evidence for acute infarction. EXTRAAXIAL SPACES: No fluid collections. No masses. ORBITS AND GLOBE: No intra- or extraconal masses. Normal contour of globe without masses. CALVARIUM: No fracture. PARANASAL SINUSES: No fluid or mucosal thickening. SOFT TISSUES: No mass or hematoma. OTHER: No other significant finding. IMPRESSION: Stable chronic white matter disease. No acute findings EVIDENCE OF ACUTE STROKE: NO. COMMENT: Quality ID # [id number]: Final reports with documentation of one or more dose reduction techniques (e.g., Automated exposure control, adjustment of the mA and/or kV according to patient size, use of iterative reconstruction technique) TECHNICAL DOCUMENTATION: JOB ID: [id number] 2010 [employer]- All Rights Reserved Reading location - IP/workstation name: [facility]-
== END ==
LOC: RAD 14:00
PROVIDERS: ATTEND Physician Assistant
DX: R51 Headache (principal); Z79.01 Long term (current) use of anticoagulants
CPT/HCPCS: 70450

== ENCOUNTER → 2020-03-07 | Outpatient (CLI) | payer MEDICAID ==
--- NOTE | 2020-03-07 16:35 | XCELERA REPORT ---
[address] [address] Transthoracic Echocardiogram Report Name: CÉSAR WORRELL Age: 64 yrs Gender: Female : 1955 Patient Status: Outpatient Patient Location: RAD Study Date: 03/07/2020 02:20 PM History: AVR Height: 64 in Weight: 205 lb BSA: 2.0 m2 Procedure: A complete two-dimensional transthoracic echocardiogram was performed (2D, M-mode, spectral and color flow Doppler). The study was technically difficult with many images being suboptimal in quality. Reason For Study: PROSTHETIC HEART VALVE Previous Evaluation: No previous studies were available. History: Vascular surgeries/interventions: AVR, Aortic root replacement. Ordering Physician: TAYA SPAULDING Performed By: Nicky Moreno Interpretation Summary Left ventricular systolic function is normal. The Ejection Fraction estimate is 60-65% The right ventricle is normal in size and function. The prosthetic aortic valve is well-seated. There is a trace amount of tricuspid regurgitation Doppler findings do not suggest pulmonary hypertension. There is no pericardial effusion. MMode/2D Measurements & Calculations RVDd: 3.9 cm LVIDd: 4.3 cm FS: 40.7 % Ao root diam: 2.1 cm IVSd: 1.1 cm LVIDs: 2.6 cm EDV(Teich): 84.0 ml Ao root area: 3.6 cm2 LVPWd: 1.1 cm ESV(Teich): 23.7 ml EF(Teich): 71.8 % Doppler Measurements & Calculations MV E max mark: MV dec slope: Ao V2 max: LV V1 max P.3 cm/sec 410.1 cm/sec2 195.0 cm/sec 2.5 mmHg MV A max mark: MV dec time: 0.21 sec Ao max PG: LV V1 max: 107.8 cm/sec 15.2 mmHg 79.2 cm/sec MV E/A: 0.78 PA V2 max: TR max mark: 97.8 cm/sec 237.3 cm/sec PA max P.8 mmHg TR max P.6 mmHg Left Ventricle The left ventricle is grossly normal size. There is mild to moderate concentric left ventricular hypertrophy. Left ventricular systolic function is normal. The Ejection Fraction estimate is 60-65%. Doppler measurements suggest impaired left ventricular relaxation, which is associated with grade I/IV or mild diastolic dysfunction. Regional wall motion abnormalities cannot be excluded due to limited visualization. Right Ventricle The right ventricle is normal in size and function. Atria The right atrium is normal. The left atrial size is normal. There is no Doppler evidence for an interatrial shunt. The interatrial septum is intact with no evidence for an atrial septal defect. Mitral Valve The mitral valve is grossly normal. There is no mitral regurgitation noted. Aortic Valve Ao V=2 m/s. No aortic regurgitation is present. The prosthetic aortic valve is well-seated. Tricuspid Valve The tricuspid valve is normal in structure and function. There is no tricuspid stenosis. There is a trace amount of tricuspid regurgitation. Best estimated RVSP is approximately 25-30 mmHg mm/Hg. Doppler findings do not suggest pulmonary hypertension. Pulmonic Valve The pulmonic valve is normal in structure and function. There is a trace amount of pulmonic regurgitation. Great Vessels Aortic root is echogenic consistent with reported surgery of aortic root replacement. The aortic root is normal size. The inferior vena cava appeared normal and decreased > 50% with respiration (RAP 5-10 mmHg). Effusions There is no pericardial effusion. : TAYA SPAULDING Anil
== END ==
LOC: RAD 14:40
PROVIDERS: ATTEND Internal Medicine
DX: Z95.2 Presence of prosthetic heart valve (principal)
CPT/HCPCS: 93306